=== PATIENT | female | born 1945 | race Caucasian/White ===

== ENCOUNTER 2024-02-23 21:43 | Emergency (ER) | payer MEDICARE ==
--- NOTE | 2024-02-23 22:07 | ED ---
Female Urogenital HPI - General Source: patient, family, RN notes reviewed <Jailyn Hodge - Last Filed: 02/23/24 22:06> <Leslie Helm - Last Filed: 02/24/24 21:49> - General Stated complaint: Blood in Urine Time Seen by Provider: 02/23/24 21:58 - History of Present Illness Initial comments: Quick [id number] female with history of Eliquis and A-fib presents emergency department chief complaint of urinary symptoms. Patient states that today she began to experience hematuria, dysuria, increase in urinary frequency and urgency. Denies nausea, vomiting, fevers, chills, back or flank pain. (Jailyn Hodge) 78-year-old female presenting with chief complaint of "I think I have a bladder infection". Patient states that today she started experiencing some dysuria, urgency, frequency, and suprapubic pressure when urinating. She denies any nausea, vomiting, fever, chills, back or flank pain, history of kidney stones. Later on in the evening the patient started experiencing hematuria which prompted her to report to the ER. She otherwise feels well at this time. No history of recurrent UTIs. (Leslie Helm) - Related Data Previous Rx's Medication Instructions Recorded Cephalexin [Keflex] 500 mg PO Q12HR 7 Days #14 cap 02/23/24 Phenazopyridine [Pyridium] 100 mg PO TID #9 tablet 02/23/24 Allergies Allergy/AdvReac Type Severity Reaction Status Date / Time No Known Allergies Allergy Verified 02/23/24 22:15 Review of Systems ROS Other: All systems not noted in ROS Statement are negative. <Jailyn Hodge - Last Filed: 02/23/24 22:06> ROS Other: All systems not noted in ROS Statement are negative. <Leslie Helm - Last Filed: 02/24/24 21:49> ROS Statement: Those systems with pertinent positive or pertinent negative responses have been documented in the HPI. General Exam <Jailyn Hodge - Last Filed: 02/23/24 22:06> Limitations: no limitations General appearance: alert, in no apparent distress Head exam: Present: atraumatic, normocephalic Eye exam: Present: normal appearance, EOMI Neck exam: Present: normal inspection. Absent: meningismus Respiratory exam: Absent: respiratory distress Cardiovascular Exam: Present: regular rate GI/Abdominal exam: Present: soft. Absent: distended, tenderness, guarding, rebound, rigid Back exam: Present: normal inspection. Absent: CVA tenderness (R), CVA tenderness (L) Neurological exam: Present: alert, oriented X3 Psychiatric exam: Present: normal affect, normal mood Skin exam: Present: warm, dry <Leslie Helm - Last Filed: 02/24/24 21:49> - General Exam Comments Initial Comments: Visual Physical Exam Vital signs reviewed General: Well-appearing, nontoxic, no acute distress. Head: Normocephalic, atraumatic Eyes: PERRLA, EOMI ENT: Airway patent Chest: Nonlabored breathing Skin: No visual rash, normal skin tone Neuro: Alert and oriented 3 Musculoskeletal: No gross abnormalities (Jailyn Hodge) Course Vital Signs 02/23/24 02/24/24 22:12 00:00 Temperature 98.5 F Pulse Rate 86 60 Respiratory 18 16 Rate Blood Pressure 187/110 192/97 O2 Sat by Pulse 97 96 Oximetry Medical Decision Making <Jailyn Hodge - Last Filed: 02/23/24 22:06> <Leslie Helm - Last Filed: 02/24/24 21:49> - Medical Decision Making I completed the quick note portion of this chart signed Jailyn Hodge PA-C (Jailyn Hodge) Was pt. sent in by a medical professional or institution ([facility], NURSE CARE MANAGER, urgent care, hospital, or detention...) When possible be specific @ -No Did you speak to anyone other than the patient for history (EMS, parent, family, police, friend...)? What history was obtained from this source @ -No Did you review nursing and triage notes (agree or disagree)? Why? @ -I reviewed and agree with nursing and triage notes Were old charts reviewed (outside hosp., previous admission, EMS record, old EKG, old radiological studies, urgent care reports/EKG's, detention records)? Report findings @ -No old charts were reviewed Differential Diagnosis (chest pain, altered mental status, abdominal pain women, abdominal pain men, vaginal bleeding, weakness, fever, dyspnea, syncope, headache, dizziness, GI bleed, back pain, seizure, CVA, palpatations, mental health, musculoskeletal)? @ -Differential includes UTI, kidney stone, malignancy, this is not an all- inclusive list EKG interpreted by me (3pts min.). @ -As above X-rays interpreted by me (1pt min.). @ -None done CT interpreted by me (1pt min.). @ -None done U/S interpreted by me (1pt. min.). @ -None done What testing was considered but not performed or refused? (CT, X-rays, U/S, labs)? Why? @ -None What meds were considered but not given or refused? Why? @ -None Did you discuss the management of the patient with other professionals (professionals i.e. , PA, NURSE CARE MANAGER, lab, RT, psych nurse, director social, machine dyer, teacher, education officer, case management director)? Give summary @ -No Was smoking cessation discussed for >3mins.? @ -No Was critical care preformed (if so, how long)? @ -No Were there social determinants of health that impacted care today? How? (Homelessness, low income, unemployed, alcoholism, drug addiction, transportation, low edu. Level, literacy, decrease access to med. care, shelter, rehab)? @ -No Was there de-escalation of care discussed even if they declined (Discuss DNR or withdrawal of care, Hospice)? DNR status @ -No What co-morbidities impacted this encounter? (DM, HTN, Smoking, COPD, CAD, Cancer, CVA, ARF, Chemo, Hep., AIDS, mental health diagnosis, sleep apnea, morbid obesity)? @ -None Was patient admitted / discharged? Hospital course, mention meds given and route , prescriptions, significant lab abnormalities, going to OR and other pertinent info. @ -78-year-old female presenting with chief complaint of hematuria dysuria, urgency, frequency, suprapubic pain. No flank pain fevers or vomiting. Urine is dark brown with copious RBCs and WBCs. Patient will be treated for UTI with Keflex and is provided with Pyridium for dysuria. Urine is sent for culture. Discharged. Follow-up with PCP. Report back to ER with any new or worsening symptoms. Discussed return parameters and answered all questions. Patient conveyed verbal understanding and agreed to the plan. I discussed this case in detail with my attending Dr. Greene Undiagnosed new problem with uncertain prognosis? @ -No Drug Therapy requiring intensive monitoring for toxicity (Heparin, Nitro, Insulin, Cardizem)? @ -No Were any procedures done? @ -No Diagnosis/symptom? @ -UTI Acute, or Chronic, or Acute on Chronic? @ -Acute Uncomplicated (without systemic symptoms) or Complicated (systemic symptoms)? @ -Uncomplicated Side effects of treatment? @ -No Exacerbation, Progression, or Severe Exacerbation? @ -No Poses a threat to life or bodily function? How? (Chest pain, USA, MD, pneumonia, PE, COPD, DKA, ARF, appy, cholecystitis, CVA, Diverticulitis, Homicidal, Suicidal, threat to staff... and all critical care pts) @ -No (Leslie Helm) - Lab Data Lab Results 02/23/24 Range/Units 22:21 Urine Color Dark Brown Urine Appearance Bloody H (Clear) Urine RBC >182 H (0-5) /hpf Urine WBC >182 H (0-5) /hpf Urine WBC Clumps Many H (None) /hpf Urine Mucus Occasional H (None) /hpf Disposition <Jailyn Hodge - Last Filed: 02/23/24 22:06> Is patient prescribed a controlled substance at d/c from ED?: No Time of Disposition: 23:33 <Leslie Helm - Last Filed: 02/24/24 21:49> Clinical Impression: Urinary tract infection Disposition: HOME SELF-CARE Condition: Good Instructions (If sedation given, give patient instructions): Urinary Tract Infection in Women (ED) Additional Instructions: Follow-up with PCP. Report back to ER with any new or worsening symptoms. Prescriptions: Cephalexin [Keflex] 500 mg PO Q12HR 7 Days #14 cap Phenazopyridine [Pyridium] 100 mg PO TID #9 tablet Referrals: Ponce Matt MD [Primary Care Provider] - 1-2 days
[2024-02-23 22:15] VITALS: TEMP 98.5
[2024-02-23 22:55] LABS: Mucus,Urine Occasional /hpf; RBC,Urine >182 /hpf (0-5); WBC,Urine >182 /hpf (0-5)
[2024-02-23 23:00] LABS: Appearance,Urine Bloody (Clear)
[2024-02-23 23:01] LABS: Color,Urine Dark Brown
[2024-02-23] MEDS: CEPHALEXIN 500 MG CAP PO STA (23:51)
[2024-02-23] MEDS: PHENAZOPYRIDINE 100 MG TAB PO STA (23:51)
[2024-02-24 00:03] VITALS: BP 192/97; PULSE 60; RESP 16
== END 2024-02-24 | disposition home or self-care (01) ==
LOC: EC 21:43
CPT/HCPCS: 81001; 87077; 87086; 87186; 99283